=== PATIENT | male | born 1960 | race Native Hawaiian/Other Pacific Islander ===

== ENCOUNTER 2022-10-21 14:17 | Observation (INO) | payer OTHER ==
[~2022-10-21] VITALS: Ht 177.8 cm; Wt 99.9 kg
[2022-10-21] VITALS (11 sets, daily range): BP systolic 120–154; BP diastolic 65–85; TEMP 97.7–99.3
[2022-10-21 15:05] LABS: PLATELET COUNT 621 K/uL (142-355)
[2022-10-21 15:12] LABS: POTASSIUM 3.6 mmol/L (3.6-5.2)
[2022-10-22 01:31] VITALS: BP 150/82; TEMP 100; Ht 177.8 cm; Wt 99.9 kg
[2022-10-22 04:00] VITALS: BP 118/68; TEMP 98.9
[2022-10-22 05:16] LABS: PLATELET COUNT 477 K/uL (142-355)
[2022-10-22 05:46] LABS: POTASSIUM 3.4 mmol/L (3.6-5.2)
[2022-10-22 07:38] VITALS: BP 146/73; TEMP 98.2
[2022-10-22] MEDS ORDERED: CELEBREX200 MG PO (11:30)
[2022-10-22] MEDS ORDERED: LEVO-T150 MCG PO (11:31)
[2022-10-22] MEDS ORDERED: CRESTOR20 MG PO (11:31)
[2022-10-22] MEDS ORDERED: HYDR25TA60 PO (11:32)
[2022-10-22] MEDS ORDERED: METO25TA4 PO (11:33)
[2022-10-22] MEDS ORDERED: TRIATAB14 PO (11:34)
[2022-10-22 11:51] VITALS: BP 138/70; TEMP 98.2
[2022-10-22 16:42] VITALS: BP 129/70; TEMP 99
[2022-10-22 20:21] VITALS: BP 146/71; TEMP 97.8
[2022-10-23 00:04] VITALS: BP 134/64; TEMP 97.4
[2022-10-23 03:55] LABS: PLATELET COUNT 445 K/uL (142-355)
[2022-10-23 04:00] VITALS: BP 133/67; TEMP 97.8
[2022-10-23 04:10] LABS: POTASSIUM 3.3 mmol/L (3.6-5.2)
[2022-10-23 08:00] VITALS: BP 142/75; TEMP 98.3
[2022-10-23 12:00] VITALS: BP 130/63; TEMP 97.7
[2022-10-23 16:00] VITALS: BP 142/66; TEMP 98
[2022-10-23 20:11] VITALS: BP 120/60; TEMP 97.6
[2022-10-24] VITALS: BP 126/58; TEMP 97.7
[2022-10-24 04:00] VITALS: BP 138/70; TEMP 97.9
[2022-10-24 05:15] LABS: PLATELET COUNT 472 K/uL (142-355)
[2022-10-24 08:00] VITALS: BP 124/63; TEMP 98.5
[2022-10-24 12:00] VITALS: BP 136/72; TEMP 97.9
[2022-10-24 16:00] VITALS: BP 137/72; TEMP 97.8
[2022-10-24 20:00] VITALS: BP 117/56; TEMP 97.8
[2022-10-25 00:32] VITALS: BP 128/71; TEMP 98.7
[2022-10-25 04:00] VITALS: BP 131/67; TEMP 98.8
[2022-10-25 08:22] VITALS: BP 132/73; TEMP 98.5
[2022-10-25 08:54] LABS: PLATELET COUNT 472 K/uL (142-355)
[2022-10-25 09:10] LABS: POTASSIUM 3.9 mmol/L (3.6-5.2)
[2022-10-25] MEDS ORDERED: LEVOFLOXACIN750 MG PO (09:45)
== END 2022-10-25 11:54 | disposition home or self-care (01) ==
LOC: ED 14:17 → MED/SURG 23:10
PROVIDERS: Emergency Medicine; Internal Medicine; ADMIT Internal Medicine; ATTEND Internal Medicine
DX: N39.0 Urinary tract infection, site not specified (principal); R06.09 Other forms of dyspnea; D72.828 Other elevated white blood cell count; E03.8 Other specified hypothyroidism; E78.49 Other hyperlipidemia; R53.1 Weakness; A08.8 Other specified intestinal infections; I11.0 Hypertensive heart disease with heart failure; I50.9 Heart failure, unspecified; R00.0 Tachycardia, unspecified; E46 Unspecified protein-calorie malnutrition; E87.6 Hypokalemia; B96.89 Other specified bacterial agents as the cause of diseases classified elsewhere; E86.0 Dehydration; S30.810A Abrasion of lower back and pelvis, initial encounter; S30.811A Abrasion of abdominal wall, initial encounter; S90.512A Abrasion, left ankle, initial encounter; X58.XXXA Exposure to other specified factors, initial encounter; Y92.89 Other specified places as the place of occurrence of the external cause
CPT/HCPCS: 36415; 80053; 81000; 83690; 84439; 84443; 84484; 85027; 87077; 87086; 87088; 87186; 87502; 87635; 93005; 94664; 94760; 96360; 96361; 96365; 96366; 96375; 99220; 99284; G0378; J1940; J1956; J2405; U0003